=== PATIENT | male | born 1950 | race Caucasian/White ===

== ENCOUNTER 2016-03-30 16:58 | Emergency (ER) | payer OTHER ==
[2016-03-30 17:07] VITALS: BP 150/89; PULSE 63; TEMP 97.5; BMI 29.6
--- NOTE | 2016-03-30 17:10 | PDOC ---
History of Present Illness - General Chief Complaint: Bite Stated Complaint: DOG BITE TO LEFT HAND Time Seen by Provider: 03/30/16 17:10 - History of Present Illness Initial Comments: 03/30/16 17:16 Chief complaint: Dog bite History of present illness: The patient was bitten by his own pet dog immediately BILLER. The dog became agitated when trying to be picked up. The dog has been immunized and is healthy. Patient sustained a laceration over the dorsum of the left hand, first metacarpal, with no involvement of the joint. Review of systems: There is no distal numbness or tingling. There is no limited range of motion in flexion or extension. The patient has no pain at present. There were no other injuries Past medical history: Elevated cholesterol, mild high blood pressure. Denies diabetes or any rheumatological or immune diseases Social/family history reviewed and noncontributory Physical exam alert and oriented well-developed well-nourished no acute distress cheerful and cooperative Afebrile, vital signs normal Left hand: There is a 1 cm V-shaped laceration over the dorsum of the hand, mid first metacarpal. The wound is superficial. It involves only the skin. No deep structures are penetrated. There is full extension and flexion of the MCP joints and IP joint. There is no sensory deficit to pinprick or 2. in the thumb Impression: Superficial laceration, dog bite Plan: Loose approximation of the wound edges, rest and elevation, antibiotics, and close follow-up. Past History - Past Medical History Allergies/Adverse Reactions: Allergies Allergy/AdvReac Type Severity Reaction Status Date / Time No Known Allergies Allergy Verified 03/30/16 17:00 Home Medications: Ambulatory Orders Carvedilol [Coreg -] 10 mg PO DAILY 10/24/15 Amoxicillin/Potassium Clav [Augmentin 875-125 Tablet] 1 tab PO BID #10 tablet Atorvastatin Ca [Lipitor] 10 mg PO HS 03/30/16 Oxycodone HCl/Acetaminophen [Percocet 10-325 mg Tablet] 1 each PO ASDIR HTN: Yes Hypercholesterolemia: Yes Other medical history: BACK PAIN - Immunization History Immunization Up to Date: No - Psycho/Social/Smoking Cessation Hx Anxiety: No Suicidal Ideation: No Smoking History: Never smoked Have you smoked in the past 12 months: No Information on smoking cessation initiated: No Hx Alcohol Use: No Drug/Substance Use Hx: No Substance Use Type: None *Physical Exam - Vital Signs Last Vital Signs Temp Pulse Resp BP Pulse Ox 97.5 F L 63 18 150/89 95 03/30/16 17:00 03/30/16 17:00 03/30/16 17:00 03/30/16 17:00 03/30/16 17:00 Medical Decision Making - Medical Decision Making 03/30/16 17:13 Procedure note: Repair of laceration The wound was copiously irrigated with normal saline and explored. It was superficial, involving only the skin. There is no evidence of foreign body. No deep structures were penetrated. Bacitracin was applied and the edges were loosely approximated with Steri-Strips. A bulky dressing was placed. Wound care was discussed. Close follow-up was advised. 03/30/16 18:03 *DC/Admit/Observation/Transfer Diagnosis at time of Disposition: Dog bite Qualifiers: Encounter type: initial encounter Qualified Code(s): W54.0XXA - Bitten by dog, initial encounter Laceration of hand Qualifiers: Encounter type: initial encounter Laterality: left Qualified Code(s): S61.412A - Laceration without foreign body of left hand, initial encounter - Discharge Dispostion Disposition: HOME Condition at time of disposition: Improved Admit: No - Prescriptions Prescriptions: Amoxicillin/Potassium Clav [Augmentin 875-125 Tablet] 1 tab PO BID #10 tablet - Patient Instructions Printed Discharge Instructions: How to Care for a Domestic Animal Bite Additional Instructions: Carefully observe the wound. Hand infections can develop rapidly and be extremely serious. It is recommended you have your doctor check the wound in 48 hours to ensure that it is healing well and there is no sign of infection. He should take the antibiotic as directed, and avoid use of the hand as much as possible, keeping it at rest and elevated to lessen the risk of infection.
[2016-03-30] MEDS ORDERED: AMOX TR/POT CLAV 875MG/125MG TABLETS (FP) PO ONE (17:15)
[2016-03-30] MEDS ORDERED: AMOX TR/POT CLAV 875MG/125MG TABLETS (FP) ONE (17:18)
== END 2016-03-30 18:13 | disposition home or self-care (01) ==
LOC: FER 16:58
DX: S61.412A Laceration without foreign body of left hand, initial encounter (principal); W54.0XXA Bitten by dog, initial encounter; Y93.89 Activity, other specified; Y92.009 Unspecified place in unspecified non-institutional (private) residence as the place of occurrence of the external cause; I10 Essential (primary) hypertension; E78.00 Pure hypercholesterolemia, unspecified
CPT/HCPCS: 99282-25